=== PATIENT | female | born 1975 | race Two or more races ===

== ENCOUNTER 2023-09-26 17:33 | Emergency (ER) | payer MEDICARE, OTHER ==
[~2023-09-26] VITALS: Ht 160 cm; Wt 77.1 kg
[~2023-09-26 17:33] MED LIST: CLIN300C12 PO; CLON2TAB11 PO; OXYC30TA86 PO; PRED20TA PO; TOPI200T PO
[2023-09-26] MEDS ORDERED: LURA20TA PO (18:10)
[2023-09-26] MEDS ORDERED: TOPI100T PO (18:10)
[2023-09-26] MEDS ORDERED: DIVA250T4 PO (18:10)
[2023-09-26] MEDS ORDERED: OXYC30TA2 PO ×2 (18:10→19:15)
[2023-09-26] MEDS ORDERED: METO50TA16 PO (18:10)
[2023-09-26] MEDS ORDERED: GABA300C PO (18:10)
[2023-09-26 20:01] VITALS: BP 107/76; TEMP 97.7; O2SAT 99
== END 2023-09-26 19:30 | disposition home or self-care (01) ==
LOC: ER 17:34
DX: G89.4 Chronic pain syndrome (principal); Z76.0 Encounter for issue of repeat prescription; G40.909 Epilepsy, unspecified, not intractable, without status epilepticus; J45.909 Unspecified asthma, uncomplicated; F31.9 Bipolar disorder, unspecified; Z79.899 Other long term (current) drug therapy; Z79.891 Long term (current) use of opiate analgesic; Z79.52 Long term (current) use of systemic steroids; Z60.2 Problems related to living alone
CPT/HCPCS: A4606; A4663